=== PATIENT | male | born 1980 | race Caucasian/White ===

== ENCOUNTER 2017-01-15 12:04 | Emergency (ER) | payer SELFPAY ==
[~2017-01-15] VITALS: Ht 185.4 cm; Wt 89.5 kg
[2017-01-15 12:12] VITALS: Ht 185.4 cm; Wt 89.5 kg
[2017-01-15] MEDS ORDERED: LORAZEPAM 1 MG TAB PO ONE (13:00)
[2017-01-15] MEDS ORDERED: TAMS-14 PO (13:40)
--- NOTE | 2017-01-15 13:50 | ERD ---
ER Documentation Chief Complaint Date/Time DATE: 01/15/17 TIME: 13:44 Chief Complaint SUDDEN ONSET PAINFUL URINATION SINCE LAST NIGHT HPI 36-year-old male patient with no significant past medical history presents to the ED complaining of dysuria that started last night. Describes the pain as a burning sensation and rates it a 10 out of 10. States that it hurts during mid stream. States that he last had unprotected sexual intercourse, 2 days ago but is not concerned about STDs. Denies any penile discharge, testicular pain, abdominal pain, nausea, vomiting, fever, chills. States that he has 1 sexual partner. Patient denied taking any OTC cough medications. ROS All systems reviewed and are negative except as per history of present illness. Medications Home Meds Active Scripts Tamsulosin Hcl* (Flomax*) 0.4 Mg Cap.er.24h, 0.4 MG PO HS, #14 CAP Prov:XENIA VALENTE PA-C 01/15/17 Allergies Allergies: Coded Allergies: Penicillins (Unverified Allergy, Unknown, 01/15/17) PMhx/Soc Medical and Surgical Hx: pt denies Medical Hx, pt denies Surgical Hx Hx Alcohol Use: No Hx Substance Use: No Hx Tobacco Use: No Smoking Status: Never smoker Physical Exam Vitals Vital Signs Date Time Temp Pulse Resp B/P Pulse Ox O2 Delivery O2 Flow Rate FiO2 01/15/17 12:12 97.3 104 18 128/65 97 Physical Exam Const: Ehs-sef-ppiutwdty, well-nourished. In no acute distress. Head: Atraumatic, normocephalic Eyes: Normal Conjunctiva without injection. No purulent discharge. ENT: Normal external ear, nose. Moist oropharynx without tonsillar exudates. Non -erythematous pharynx. Uvula midline. No drooling. No trismus. Neck: No cervical midline tenderness. Full range of motion. No meningismus. No cervical lymphadenopathy. No JVD. Resp: Clear to auscultation bilaterally. No wheezing, rhonchi, rales, or crackles. No accessory muscle use. No retractions. Cardio: Regular rate and rhythm. No murmurs, rubs or gallops. Abd: Soft, nontender, non distended. Normal bowel sounds. No palpable masses. No rebound tenderness. No guarding. Negative McBurney's point. Negative psoas sign. Negative obturator sign. : Circumcised penis. No scrotal tenderness, warmth to touch, edema or erythema. No penile discharge. No hernias. No phimosis. No paraphimosis. Skin: No petechiae or rashes Back: No midline tenderness. No CVA tenderness. Ext: No cyanosis, or edema. Neur: Awake and alert. Normal gait. Normal coordination. Psych: Normal Mood and Affect Results 24 hrs Current Medications Medications (Trade) Dose Ordered Sig/Lida Route PRN Reason Start Time Stop Time Status Last Admin Dose Admin Lorazepam (Ativan) 1 mg ONCE ONCE PO 01/15/17 13:00 01/15/17 13:01 DC 01/15/17 13:01 Procedures/MDM This is a 36-year-old male patient with no significant past medical history presents the ED complaining of dysuria that started last night. Patient is afebrile and nontoxic-appearing. Patient has normal vital signs. A urine dip, urine culture, gonorrhea and chlamydia test was initially ordered to further evaluate patient. Patient stated that he was not able to urinate due to the pain, therefore straight catheterization was offered to patient however he denied wanting this procedure to be performed. Patient was given Ativan here in the ED and still did not want to urine or have a urinary catheter placed due to the pain. He was strictly therefore instructed to follow up with a urologist for further care and treatment. Low suspicion for sepsis, gastritis, STDs, herpes, paraphimosis, phimosis, hernias, urinary retention, testicular torsion, GERD, peptic ulcer disease, cholecystitis, choledocholithiasis, cholangitis, pancreatitis, appendicitis, bowel obstruction, ileus, volvulus, nephrolithiasis , pyelonephritis, hepatitis, perforated viscus, diverticulitis, abdominal hernia , acute abdomen, mesenteric ischemia or other emergent conditions. Case discussed with my supervising physician, Dr. Patel who agreed with the management and discharge plan. Discharge medications: Flomax Follow up with primary care physician in 1-2 days for a referral to see a urologist. Instructed patient to return to the ED sooner for any worsening symptoms. Patient's questions were answered. Patient understood and agreed with discharge plan. Patient discharged stable. Departure Diagnosis: Primary Impression: Dysuria Condition: Stable Patient Instructions: Dysuria Referrals: COMMUNITY CLINICS YOU HAVE RECEIVED A MEDICAL SCREENING EXAM AND THE RESULTS INDICATE THAT YOU DO NOT HAVE A CONDITION THAT REQUIRES URGENT TREATMENT IN THE EMERGENCY DEPARTMENT. FURTHER EVALUATION AND TREATMENT OF YOUR CONDITION CAN WAIT UNTIL YOU ARE SEEN IN YOUR DOCTORS OFFICE WITHIN THE NEXT 1-2 DAYS. IT IS YOUR RESPONSIBILITY TO MAKE AN APPOINTMENT FOR FOLOW-UP CARE. IF YOU HAVE A PRIMARY DOCTOR --you should call your primary doctor and schedule an appointment IF YOU DO NOT HAVE A PRIMARY DOCTOR YOU CAN CALL OUR PHYSICIAN REFERRAL HOTLINE AT IF YOU CAN NOT AFFORD TO SEE A PHYSICIAN YOU CAN CHOSE FROM THE FOLLOWING [facility] [address] [facility]. [facility] [address] [facility] [address] [facility] [facility] [address] [facility]. [facility] [address] [facility]. [facility] [address] [facility]. [facility] YOU HAVE RECEIVED A MEDICAL SCREENING EXAM AND THE RESULTS INDICATE THAT YOU DO NOT HAVE A CONDITION THAT REQUIRES URGENT TREATMENT IN THE EMERGENCY DEPARTMENT. FURTHER EVALUATION AND TREATMENT OF YOUR CONDITION CAN WAIT UNTIL YOU ARE SEEN IN YOUR DOCTORS OFFICE WITHIN THE NEXT 1-2 DAYS. IT IS YOUR RESPONSIBILITY TO MAKE AN APPOINTMENT FOR FOLOW-UP CARE. IF YOU HAVE A PRIMARY DOCTOR --you should call your primary doctor and schedule and appointment IF YOU DO NOT HAVE A PRIMARY DOCTOR YOU CAN CALL OUR PHYSICIAN REFERRAL HOTLINE AT . IF YOU CAN NOT AFFORD TO SEE A PHYSICIAN YOU CAN CHOSE FROM THE FOLLOWING [facility] INSTITUTIONS: [facility] [address] [place] [address] [facility] [address] [place] [address] [facility] + [facility] [address] [place] [address] [facility]RGENT C[facility]SPECIALTIES Additional Instructions: FOLLOW UP WITH YOUR PRIMARY CARE PHYSICIAN TOMORROW for a referral to see a urologist. Return to this facility if you are not improving as expected - fever , nausea, vomiting, abdominal pain, testicular pain, etc. XENIA VALENTE PA-C Jan 15, 2017 13:50
== END 2017-01-15 13:52 | disposition home or self-care (01) ==
LOC: FTE 12:04
DX: R30.0 Dysuria (principal); F41.9 Anxiety disorder, unspecified
CPT/HCPCS: 99283